=== PATIENT | female | born 1925 | race Caucasian/White ===

== ENCOUNTER 2016-11-18 10:25 | Emergency (ER) | payer OTHER ==
--- NOTE | 2016-11-18 11:44 | ED NURSING NOTES ---
Clinical Report - Nurses [facility] [address] [place] [address] 11/18/2016 10:25 Patient: DEREK NIELSEN TRIAGE Triage time 10:37 Nov 18 2016. Acuity: LEVEL 4. Chief Complaint: TENDER AREA. 10:38 11/18/16. 10:38 11/18/16. Alert (history of dementia). No acute distress. ( Left buttock pain, tender area on inside of left buttock). SEPSIS SCREEN: Sepsis Screen. Negative (no infection suspected/documented). --10:48 Ervin Locke R.N. 10:43 11/18/16. BP: 156/72. HR: 60. RR: 18. O2 saturation: 99% on room air. Temp: 97.6 F (oral). Pain level now: 5/10. --10:48 Ervin Locke R.N. Weight: 80 kg stated. Height/Length: 67 inches Per Patient. BMI: 27.6. --10:43 Ervin Locke R.N. Medications Lasix Oral 20 mg, daily. Lisinopril Oral 40 mg, daily. Magnesium Chloride Oral 64mg, 2 times a day. --10:43 Ervin Locke R.N. ASA Oral. --10:45 Ervin Locke R.N. Multi Vitamin Daily Oral. --10:45 Ervin Locke R.N. Vitamin D Oral. --10:46 Ervin Locke R.N. Medication/allergy information source: the patient and patient's family. --10:48 Ervin Locke R.N. Allergies Levothyroxine Sodium. --10:43 Ervin Locke R.N. History Arrived by private vehicle. Historian: patient. Accompanied by family. Primary physician (OTTO ROSS). 10:38 11/18/16. Reported as located on the right buttock. It is described as painful. 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 PAST MEDICAL HX: Immunizations: status is unknown. SOCIAL HX: Never smoker. No alcohol use or drug use. No infectious disease exposure. ABUSE ASSESSMENT: No report of abuse. FALL RISK ASSESSMENT: Fall risk assessment completed. No fall risk identified. NUTRITIONAL RISK ASSESSMENT: The nutritional risk assessment revealed no deficiencies. FUNCTIONAL ASSESSMENT: Functional assessment: no impairments noted. LEARNING NEEDS ASSESSMENT: The learning needs assessment revealed no barriers. SKIN INTEGRITY ASSESSMENT: Skin integrity risk assessment completed. No skin integrity risk identified. --10:48 Ervin Locke R.N. This started today. --10:48 Ervin Locke R.N. PROBLEMS: Hip Fracture. Hypothyroidism. Dementia. Hematoma. Intracranial Hemorrhage. Immunizations. TIA - Transient Ischemic Attack. Fall. Syncope. Pneumonia. Tetanus Status. Atrial Fibrillation. Forgetfulness. Hypertension. --10:46 Ervin Locke R.N. TIA - Transient Ischemic Attack [RuleOut]. --10:46 Ervin Locke R.N. ADDITIONAL SURGERIES: Cholecystectomy. Ulcer. --10:46 Ervin Locke R.N. Assessment 10:38 11/18/16. --10:48 Ervin Locke R.N. Interventions 10:38 11/18/16. 10:38 11/18/16. ID and allergy band on patient. To treatment room. --10:48 Ervin Locke R.N. PHYSICAL ASSESSMENT 10:38 11/18/16. Ambulatory to room. (with front wheel walker). GENERAL / NEURO / PSYCH: Alert. The patient does not appear to be in acute distress. Oriented X 4. RESPIRATORY: Respirations not labored. CVS: Capillary refill less than 2 seconds. SKIN: Skin is warm and dry. Tenderness on the left buttock. --10:38 Ervin Locke R.N. NURSING PROGRESS NOTES 10:39 11/18/16. The plan of care for this patient has been created. Patient gowned. Head of bed elevated. Reassurance given. Two patient identifiers checked. Call light placed in reach. Side rails up x 2. Bed placed in lowest position. Brakes of bed on. --10:39 Ervin Locke R.N. 10:39 11/18/16. Patient ready for evaluation- chart flagged and notification provided. --10:39 Ervin Locke R.N. 10:56 11/18/2016 Percocet (Oxycodone-Acetaminophen) PO 5/325 mg Tablets 1 tab given. Allergies verified, confirmed 5 rights and sedative warning given to the patient. --10:56 Ervin Locke R.N. 10:56 11/18/2016 Bactrim DS (Sulfamethoxazole-TMP DS) PO 1 tab given. Allergies verified and confirmed 5 rights. --10:56 Ervin Locke R.N. 10:56 11/18/2016 Keflex (Cephalexin) PO 500 mg given. Allergies verified and confirmed 5 rights. --10:56 Ervin Locke R.N. 10:56 11/18/2016 Lidocaine-Epinephrine (Lidocaine-Epinephrine) Injection 1 % given. Allergies verified and confirmed 5 rights. (administered by ). --10:56 Ervin Locke R.N. 11:11/18/2016 OFRBAXW-UGHSGN-OJRZK PERTUSSIS IM 0.5 mL given. (Lot#: [id number], expiration date: 10/21/2018, Client Service Coordinator: sanofi pasteur). Given in the right deltoid. Allergies verified and confirmed 5 rights. Vaccine information statement provided to the patient. --11:01 Ervin Locke R.N. 11:25 11/18/16. ( Provider at bedside with mba intern to I and D abscess). --11:25 Ervin Locke R.N. late entry -11:40. I & D: Incision and Drainage of abscess performed by ED physician. Assisted by two nurses. Preparation: with 1% lidocaine with epi. Post-procedure: she was stable. Total time of assist / procedure: 15 minutes. ( Dressing applied). --11:56 Ervin Locke R.N. DISPOSITION / DISCHARGE 11:55 11/18/16. Condition at departure: improved. The goals identified in the patient's plan of care were met. No learning barriers present. Discharge instructions provided and reviewed with the patient and family. Reviewed warnings. Reviewed medication(s). Treatments reviewed. Patient and family verbalized understanding. Written instructions provided in Cypriot. The patient was discharged by the physician. She was discharged home and accompanied by family. She left the Emergency Department ambulatory, via private vehicle and (Front Wheel walker). Family member driving. FALL RISK ASSESSMENT: Fall risk assessment completed. No fall risk identified. --11:55 Ervin Locke R.N. 11:54 11/18/16. BP: 178/55. HR: 73. RR: 14. O2 saturation: 99% on room air. Temp: 98.1 F (oral). --11:55 Ervin Locke R.N. 11:56 11/18/16. Departure time: 11:56 Nov 18 2016. ( Family aware to follow up with PCP in 2 days for wound check). --11:56 Ervin Locke R.N. Locked/Released at 11/18/2016 12:42 by Ervin Locke R.N.
--- NOTE | 2016-11-18 11:44 | ED ORDER SUMMARY ---
..... Patient: DEREK NIELSEN OrderSheet [facility] VisitID: [id number] [place] [address] 89y, F Registration Date/Time: 11/18/2016 ORDER SHEET Weight: 80 kg (stated) Allergies: Levothyroxine Sodium GENERAL ORDERS: I&D Tray (10:49 11/18/2016 Arash Arnold) (10:53 PWeiler ER Tech1) MEDICATION ORDERS: Lidocaine-Epinephrine Injection 1% (place at bedside, with syringes & needles) (10:48 11/18/2016 Arash Arnold) (Ack 10:49 JBoardley R.N.) (10:56 JBoardley R.N.) Percocet PO 5/325 mg (HIGH ALERT MEDICATION, NOW) (10:48 11/18/2016 Arash Arnold) (Ack 10:49 JBoardley R.N.) (10:56 JBoardley R.N.) Bactrim DS PO (Tablet 800-160 mg) 1 tab (NOW) (10:49 11/18/2016 Arash Arnold) (Ack 10:49 JBoardley R.N.) (10:56 JBoardley R.N.) Keflex PO 500 mg (NOW) (10:49 11/18/2016 Arash Arnold) (Ack 10:49 JBoardley R.N.) (10:56 JBoardley R.N.) Hgldjdo-Qxporv-Vvmyz Pertussis IM 0.5 mL (NOW, per protocol) (10:52 11/18/2016 Arash Arnold) (Ack 10:54 JBoardley R.N.) (11:01 JBoardley R.N.) IV FLUIDS: ORDER SHEET NOTES: [Electronically signed by Ervin Locke R.N. (12:42 11/18/2016)] [Electronically signed by Todd Archer Dr. (04:46 11/20/2016)] [Electronically locked/signed by Ervin Locke R.N. (12:42 11/18/2016)]
--- NOTE | 2016-11-18 11:44 | ED CLINICAL REPORT ---
Clinical Report - Physicians/Mid Levels [facility] [address] [place] [address] 11/18/2016 10:25 Patient: DEREK NIELSEN Time Seen: 1029; initial patient contact. Arrived- By private vehicle. Historian- patient and family. HISTORY OF PRESENT ILLNESS Chief Complaint: BOIL. This started maybe a few days but not sure. patient with dementia. and is still present and worsening. It was gradual in onset and has been constant but is not gone now. It is described as painful. Cause has been identified (abscess). Similar symptoms previously: None. Recent medical care: Not recently seen/assessed. REVIEW OF SYSTEMS No fever, chills, difficulty breathing, chest pain or nausea. No vomiting. All systems otherwise negative, except as recorded above. PAST HISTORY See nurses notes. Tetanus immunization status is unknown. Medications: Vitamin D Oral. Multi Vitamin Daily Oral. ASA Oral. Lasix Oral 20 mg, daily. Lisinopril Oral 40 mg, daily. Magnesium Chloride Oral 64mg, 2 times a day. Allergies: Levothyroxine Sodium. SOCIAL HISTORY Never smoker. No alcohol use or drug use. No recent travel. Is a local resident. ADDITIONAL NOTES The nursing notes have been reviewed. PHYSICAL EXAM Vital Signs: 11/18/2016 10:43 BP: 156/72. HR: 60. RR: 18. O2 saturation: 99%. Temp: 97.6 F. Pain level now: 5/10. Oxygen saturation normal. Appearance: Alert. Oriented X3. No acute distress. Eyes: Pupils equal, round and reactive to light. Conjunctivae and eyelids normal. ENT: Ears normal. Nose normal. Pharynx normal. CVS: Normal heart rate and rhythm. Heart sounds normal. Respiratory: No respiratory distress. Breath sounds normal. Chest nontender. Abdomen: Nontender. No organomegaly. Skin: (abscess 3 x 4 cm with small surrounding erythema. no crepitus. no signs of fornier's. no masses. external hemorrhoids. no other signs of infection.). Neuro: Oriented X 3. No motor deficit. No sensory deficit. PROGRESS AND PROCEDURES Incision & Drainage of Abscess: The risks of the procedure, benefits and alternatives were explained. Anesthesia provided using 1% lidocaine with epi. Skin cleansed with Betadine. The abscess was incised with a #10 surgical blade. A moderate amount of pus was drained. Cavity was irrigated with saline and packed with gauze. Estimated blood loss: 3 mL. ( patient tolerated well. no complications.). Course of Care: jacquelyn is a pleasant 89-year-old female presenting for evaluation of abscess to the buttocks. No signs of foreign's gangrene. Informed verbal consent obtained for procedure of incision and drainage. Patient tolerated procedure well. Improved symptoms after procedure was performed. No competitions. No systemic symptoms. Discussed with patient work up, diagnosis, home care, follow up, and return precautions. All questions answered. patient expressed understanding of these instructions and was agreeable to them. Disposition: Discharged. Condition: good. CLINICAL IMPRESSION Single deep abscess with incision and drainage (left buttocks). Cellulitis (left buttocks). INSTRUCTIONS Warnings: GENERAL WARNINGS: Return or contact your physician immediately if your condition worsens or changes unexpectedly, if not improving as expected, or if other problems arise. Specifically return if pain, vomiting, bleeding, breathing difficulty or fever. Your Current Medications: CONTINUE TAKING THE FOLLOWING MEDICATIONS: ASA Oral. Lasix Oral : 20 mg daily. Lisinopril Oral : 40 mg daily. Magnesium Chloride Oral : 64mg 2 times a day. Multi Vitamin Daily Oral. Vitamin D Oral. Prescription Medications: Bactrim DS 800 mg / 160 mg: take 1 tablet orally every 12 hours for 10 days. Substitution is permissible. (Disp 20 tabs) Keflex 500 mg: take 1 capsule orally every 8 hours for 10 days. No refill. Substitution is permissible. (disp 30 caps) Percocet 5 mg/325 mg: take 1 tablet orally every 6 hours as needed for pain. Dispense ten (10). No refill. Substitution is permissible. Follow-up: Return to the emergency department as needed. Follow up with your doctor in two days. Reason for referral: recheck today's concerns. Summary of care provided to patient and family via paper. Screening today revealed the patient's blood pressure to be in the hypertensive range. Blood pressure screening was not performed during this visit because the patient has an active diagnosis of hypertension. The patient should follow up with a primary care provider for blood pressure management. Understanding of the discharge instructions verbalized by patient. (Electronically signed by Todd Archer Dr. 11/20/2016 4:46)
--- NOTE | 2016-11-18 11:44 | ED ORDER SUMMARY ---
..... Patient: DEREK NIELSEN OrderSheet [facility] VisitID: [id number] [place] [address] 89y, F Registration Date/Time: 11/18/2016 ORDER SHEET Weight: 80 kg (stated) Allergies: Levothyroxine Sodium GENERAL ORDERS: I&D Tray (10:49 11/18/2016 Arash Arnold) (10:53 PWeiler ER Tech1) MEDICATION ORDERS: Lidocaine-Epinephrine Injection 1% (place at bedside, with syringes & needles) (10:48 11/18/2016 Arash Arnold) (Ack 10:49 JBoardley R.N.) (10:56 JBoardley R.N.) Percocet PO 5/325 mg (HIGH ALERT MEDICATION, NOW) (10:48 11/18/2016 Arash Arnold) (Ack 10:49 JBoardley R.N.) (10:56 JBoardley R.N.) Bactrim DS PO (Tablet 800-160 mg) 1 tab (NOW) (10:49 11/18/2016 Arash Arnold) (Ack 10:49 JBoardley R.N.) (10:56 JBoardley R.N.) Keflex PO 500 mg (NOW) (10:49 11/18/2016 Arash Arnold) (Ack 10:49 JBoardley R.N.) (10:56 JBoardley R.N.) Hhmuqrm-Ozlcvs-Kvzeu Pertussis IM 0.5 mL (NOW, per protocol) (10:52 11/18/2016 Arash Arnold) (Ack 10:54 JBoardley R.N.) (11:01 JBoardley R.N.) IV FLUIDS: ORDER SHEET NOTES: [Electronically signed by Ervin Locke R.N. (12:42 11/18/2016)] [Electronically signed by Todd Archer Dr. (04:46 11/20/2016)] [Electronically locked/signed by Ervin Locke R.N. (12:42 11/18/2016)]
--- NOTE | 2016-11-18 11:44 | ED NURSING NOTES ---
Clinical Report - Nurses [facility] [address] [place] [address] 11/18/2016 10:25 Patient: DEREK NIELSEN TRIAGE Triage time 10:37 Nov 18 2016. Acuity: LEVEL 4. Chief Complaint: TENDER AREA. 10:38 11/18/16. 10:38 11/18/16. Alert (history of dementia). No acute distress. ( Left buttock pain, tender area on inside of left buttock). SEPSIS SCREEN: Sepsis Screen. Negative (no infection suspected/documented). --10:48 Ervin Locke R.N. 10:43 11/18/16. BP: 156/72. HR: 60. RR: 18. O2 saturation: 99% on room air. Temp: 97.6 F (oral). Pain level now: 5/10. --10:48 Ervin Locke R.N. Weight: 80 kg stated. Height/Length: 67 inches Per Patient. BMI: 27.6. --10:43 Ervin Locke R.N. Medications Lasix Oral 20 mg, daily. Lisinopril Oral 40 mg, daily. Magnesium Chloride Oral 64mg, 2 times a day. --10:43 Ervin Locke R.N. ASA Oral. --10:45 Ervin Locke R.N. Multi Vitamin Daily Oral. --10:45 Ervin Locke R.N. Vitamin D Oral. --10:46 Ervin Locke R.N. Medication/allergy information source: the patient and patient's family. --10:48 Ervin Locke R.N. Allergies Levothyroxine Sodium. --10:43 Ervin Locke R.N. History Arrived by private vehicle. Historian: patient. Accompanied by family. Primary physician (OTTO ROSS). 10:38 11/18/16. Reported as located on the right buttock. It is described as painful. 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 PAST MEDICAL HX: Immunizations: status is unknown. SOCIAL HX: Never smoker. No alcohol use or drug use. No infectious disease exposure. ABUSE ASSESSMENT: No report of abuse. FALL RISK ASSESSMENT: Fall risk assessment completed. No fall risk identified. NUTRITIONAL RISK ASSESSMENT: The nutritional risk assessment revealed no deficiencies. FUNCTIONAL ASSESSMENT: Functional assessment: no impairments noted. LEARNING NEEDS ASSESSMENT: The learning needs assessment revealed no barriers. SKIN INTEGRITY ASSESSMENT: Skin integrity risk assessment completed. No skin integrity risk identified. --10:48 Ervin Locke R.N. This started today. --10:48 Ervin Locke R.N. PROBLEMS: Hip Fracture. Hypothyroidism. Dementia. Hematoma. Intracranial Hemorrhage. Immunizations. TIA - Transient Ischemic Attack. Fall. Syncope. Pneumonia. Tetanus Status. Atrial Fibrillation. Forgetfulness. Hypertension. --10:46 Ervin Locke R.N. TIA - Transient Ischemic Attack [RuleOut]. --10:46 Ervin Locke R.N. ADDITIONAL SURGERIES: Cholecystectomy. Ulcer. --10:46 Ervin Locke R.N. Assessment 10:38 11/18/16. --10:48 Ervin Locke R.N. Interventions 10:38 11/18/16. 10:38 11/18/16. ID and allergy band on patient. To treatment room. --10:48 Ervin Locke R.N. PHYSICAL ASSESSMENT 10:38 11/18/16. Ambulatory to room. (with front wheel walker). GENERAL / NEURO / PSYCH: Alert. The patient does not appear to be in acute distress. Oriented X 4. RESPIRATORY: Respirations not labored. CVS: Capillary refill less than 2 seconds. SKIN: Skin is warm and dry. Tenderness on the left buttock. --10:38 Ervin Locke R.N. NURSING PROGRESS NOTES 10:39 11/18/16. The plan of care for this patient has been created. Patient gowned. Head of bed elevated. Reassurance given. Two patient identifiers checked. Call light placed in reach. Side rails up x 2. Bed placed in lowest position. Brakes of bed on. --10:39 Ervin Locke R.N. 10:39 11/18/16. Patient ready for evaluation- chart flagged and notification provided. --10:39 Ervin Locke R.N. 10:56 11/18/2016 Percocet (Oxycodone-Acetaminophen) PO 5/325 mg Tablets 1 tab given. Allergies verified, confirmed 5 rights and sedative warning given to the patient. --10:56 Ervin Locke R.N. 10:56 11/18/2016 Bactrim DS (Sulfamethoxazole-TMP DS) PO 1 tab given. Allergies verified and confirmed 5 rights. --10:56 Ervin Locke R.N. 10:56 11/18/2016 Keflex (Cephalexin) PO 500 mg given. Allergies verified and confirmed 5 rights. --10:56 Ervin Locke R.N. 10:56 11/18/2016 Lidocaine-Epinephrine (Lidocaine-Epinephrine) Injection 1 % given. Allergies verified and confirmed 5 rights. (administered by ). --10:56 Ervin Locke R.N. 11:11/18/2016 AOBUHBM-DOWSXZ-USHMM PERTUSSIS IM 0.5 mL given. (Lot#: [id number], expiration date: 10/21/2018, Rail Washer: sanofi pasteur). Given in the right deltoid. Allergies verified and confirmed 5 rights. Vaccine information statement provided to the patient. --11:01 Ervin Locke R.N. 11:25 11/18/16. ( Provider at bedside with apparel merchandiser to I and D abscess). --11:25 Ervin Locke R.N. late entry -11:40. I & D: Incision and Drainage of abscess performed by ED physician. Assisted by two nurses. Preparation: with 1% lidocaine with epi. Post-procedure: she was stable. Total time of assist / procedure: 15 minutes. ( Dressing applied). --11:56 Ervin Locke R.N. DISPOSITION / DISCHARGE 11:55 11/18/16. Condition at departure: improved. The goals identified in the patient's plan of care were met. No learning barriers present. Discharge instructions provided and reviewed with the patient and family. Reviewed warnings. Reviewed medication(s). Treatments reviewed. Patient and family verbalized understanding. Written instructions provided in Tongan. The patient was discharged by the physician. She was discharged home and accompanied by family. She left the Emergency Department ambulatory, via private vehicle and (Front Wheel walker). Family member driving. FALL RISK ASSESSMENT: Fall risk assessment completed. No fall risk identified. --11:55 Ervin Locke R.N. 11:54 11/18/16. BP: 178/55. HR: 73. RR: 14. O2 saturation: 99% on room air. Temp: 98.1 F (oral). --11:55 Ervin Locke R.N. 11:56 11/18/16. Departure time: 11:56 Nov 18 2016. ( Family aware to follow up with PCP in 2 days for wound check). --11:56 Ervin Locke R.N. Locked/Released at 11/18/2016 12:42 by Ervin Locke R.N.
--- NOTE | 2016-11-20 04:47 | ED MAR SUMMARY ---
..... Medication Administration Record [facility] [address] [place] [address] Patient: DEREK NIELSEN Visit ID: [id number] 89y, F Weight: 80.0 kg Height/Length: 67 in BMI: 27.6 ALLERGIES: Levothyroxine Sodium Given 10:11/18/2016 Ervin Locke R.N. Medication Administered: LIDOCAINE-EPINEPHRINE [INJECTION] (LIDOCAINE-EPINEPHRINE), Dose: 1 % Injection. Medication Ordered: Lidocaine-Epinephrine Injection 1% (place at bedside, with syringes & needles). Given :11/18/2016 Ervin Locke R.N. Medication Administered: PERCOCET [PO] (OXYCODONE-ACETAMINOPHEN), Dose: 1 tab 5/325 mg Tablets PO. Medication Ordered: Percocet PO 5/325 mg (HIGH ALERT MEDICATION, NOW). Given :11/18/2016 Ervin Locke R.N. Medication Administered: BACTRIM DS [PO] (SULFAMETHOXAZOLE-TMP DS), Dose: 1 tab PO. Medication Ordered: Bactrim DS PO (Tablet 800-160 mg) 1 tab (NOW). Given :11/18/2016 Ervin Locke R.N. Medication Administered: KEFLEX [PO] (CEPHALEXIN), Dose: 500 mg PO. Medication Ordered: Keflex PO 500 mg (NOW). Given 11:11/18/2016 Ervin Locke R.N. Medication Administered: NTZFWHI-LEGFDW-GABWG PERTUSSIS [IM], Dose: 0.5 mL IM. Medication Ordered: Msjqfoe-Juzvbf-Kyghg Pertussis IM 0.5 mL (NOW, per protocol).
--- NOTE | 2016-11-20 04:47 | ED MED RECONCILIATION SUMMARY ---
Patient: DEREK NIELSEN Medication Reconciliation Report [facility] VisitID: [id number] [place] [address] 89y, F Registration Date/Time: 11/18/2016 Weight: 80 kg Height/Length: 67 in. BMI: 27.6 ALLERGIES: Levothyroxine Sodium The patient's Home Medications are listed below: CONTINUE TAKING THE FOLLOWING MEDICATIONS: ASA Oral Lasix Oral 20 mg, daily Lisinopril Oral 40 mg, daily Magnesium Chloride Oral 64mg, 2 times a day Multi Vitamin Daily Oral Vitamin D Oral The source(s) of the original Home Medication information: patient patient's family member The following Medications were given to the patient in the Emergency Department: Percocet [PO] PO 1 tab, administered: 11/18/2016 10:56:00 AM Bactrim DS [PO] PO 1 tab, administered: 11/18/2016 10:56:00 AM Keflex [PO] PO 500 mg, administered: 11/18/2016 10:56:00 AM Lidocaine-Epinephrine [Injection] Injection 1 %, administered: 11/18/2016 10:56:00 AM VAPXVAN-VPJSSZ-OYTEF PERTUSSIS [IM] IM 0.5 mL, administered: 11/18/2016 11:01:00 AM The following Medications were prescribed to the patient: Bactrim DS 800 mg / 160 mg: take 1 tablet orally every 12 hours for 10 days. Substitution is permissible.(Disp 20 tabs) -- Todd Archer Dr. Keflex 500 mg: take 1 capsule orally every 8 hours for 10 days. No refill. Substitution is permissible.(disp 30 caps) -- Todd Archer Dr. Percocet 5 mg/325 mg: take 1 tablet orally every 6 hours as needed for pain. Dispense ten (10). No refill. Substitution is permissible. -- Todd Archer Dr.
--- NOTE | 2016-11-20 04:47 | ED MED RECONCILIATION SUMMARY ---
Patient: DEREK NIELSEN Medication Reconciliation Report [facility] VisitID: [id number] [place] [address] 89y, F Registration Date/Time: 11/18/2016 Weight: 80 kg Height/Length: 67 in. BMI: 27.6 ALLERGIES: Levothyroxine Sodium The patient's Home Medications are listed below: CONTINUE TAKING THE FOLLOWING MEDICATIONS: ASA Oral Lasix Oral 20 mg, daily Lisinopril Oral 40 mg, daily Magnesium Chloride Oral 64mg, 2 times a day Multi Vitamin Daily Oral Vitamin D Oral The source(s) of the original Home Medication information: patient patient's family member The following Medications were given to the patient in the Emergency Department: Percocet [PO] PO 1 tab, administered: 11/18/2016 10:56:00 AM Bactrim DS [PO] PO 1 tab, administered: 11/18/2016 10:56:00 AM Keflex [PO] PO 500 mg, administered: 11/18/2016 10:56:00 AM Lidocaine-Epinephrine [Injection] Injection 1 %, administered: 11/18/2016 10:56:00 AM PGIFJBY-GQHICG-ZKJIE PERTUSSIS [IM] IM 0.5 mL, administered: 11/18/2016 11:01:00 AM The following Medications were prescribed to the patient: Bactrim DS 800 mg / 160 mg: take 1 tablet orally every 12 hours for 10 days. Substitution is permissible.(Disp 20 tabs) -- Todd Archer Dr. Keflex 500 mg: take 1 capsule orally every 8 hours for 10 days. No refill. Substitution is permissible.(disp 30 caps) -- Todd Archer Dr. Percocet 5 mg/325 mg: take 1 tablet orally every 6 hours as needed for pain. Dispense ten (10). No refill. Substitution is permissible. -- Todd Archer Dr.
--- NOTE | 2016-11-20 04:47 | ED DISCHARGE INSTRUCTIONS ---
Patient: DEREK NIELSEN General Instructions [facility] VisitID: [id number] [place] [address] 89y, F Registration Date/Time: 11/18/2016 Single deep abscess with incision and drainage (left buttocks). Cellulitis (left buttocks). INSTRUCTIONS Warnings: GENERAL WARNINGS: Return or contact your physician immediately if your condition worsens or changes unexpectedly, if not improving as expected, or if other problems arise. Specifically return if pain, vomiting, bleeding, breathing difficulty or fever. Your Current Medications: CONTINUE TAKING THE FOLLOWING MEDICATIONS: ASA Oral. Lasix Oral : 20 mg daily. Lisinopril Oral : 40 mg daily. Magnesium Chloride Oral : 64mg 2 times a day. Multi Vitamin Daily Oral. Vitamin D Oral. Prescription Medications: Bactrim DS 800 mg / 160 mg: take 1 tablet orally every 12 hours for 10 days. Substitution is permissible. (Disp 20 tabs) Keflex 500 mg: take 1 capsule orally every 8 hours for 10 days. No refill. Substitution is permissible. (disp 30 caps) Percocet 5 mg/325 mg: take 1 tablet orally every 6 hours as needed for pain. Dispense ten (10). No refill. Substitution is permissible. Follow-up: Return to the emergency department as needed. Follow up with your doctor in two days. Reason for referral: recheck today's concerns. Summary of care provided to patient and family via paper. Screening today revealed the patient's blood pressure to be in the hypertensive range. Blood pressure screening was not performed during this visit because the patient has an active diagnosis of hypertension. The patient should follow up with a primary care provider for blood pressure management. Understanding of the discharge instructions verbalized by patient. ADDITIONAL INFORMATION Abscess [Incision & Drainage] An abscess (sometimes called a boil) occurs when bacteria get trapped under the skin and begin to grow. Pus forms inside the abscess as the body responds to the bacteria. An abscess can occur with an insect bite, ingrown hair, blocked oil gland, pimple, cyst, or puncture wound. Treatment of your abscess has required an incision to drain the pus. If the abscess pocket was large, a gauze packing may have been inserted. This will need to be removed and possibly replaced on your next visit. Antibiotics are not required in the treatment of a simple abscess, unless the infection is spreading into the skin around the wound (known as cellulitis). Healing of the wound will take about one to two weeks depending on the size of the abscess. Healthy tissue will grow from the bottom and sides of the opening until it seals over. Home Care: The wound may drain for the first two days. Cover the wound with a clean dry dressing. If the dressing becomes soaked with blood or pus, change it. If a gauze packing was placed inside the abscess cavity, you may be advised to remove it yourself. You may do this in the shower. Once the packing is removed, you should wash the area in the shower or bath 3 to 4 times a day, until the skin opening has closed. If you were prescribed antibiotics, take them as directed until they are all gone. You may use acetaminophen (Tylenol) or ibuprofen (Motrin, Advil) to control pain, unless another pain medicine was prescribed. [ NOTE: If you have liver disease or ever had a stomach ulcer, talk with your doctor before using these medicines.] Follow Up with your doctor as advised by our staff. If a gauze packing was inserted in your wound, it should be removed in 1-2 days. Check your wound every day for the signs of worsening infection listed below. Get Prompt Medical Attention if any of the following occur: Increasing redness or swelling Red streaks in the skin leading away from the wound Increasing local pain or swelling Continued pus draining from the wound two days after treatment Fever of 100.4F (38C) or higher, or as directed by your healthcare provider Sulfamethoxazole, Trimethoprim Oral tablet What is this medicine? SULFAMETHOXAZOLE; TRIMETHOPRIM or SMX-TMP (suhl fuh meth OK penelope zohl; trye METH oh prim) is a combination of a sulfonamide antibiotic and a second antibiotic, trimethoprim. It is used to treat or prevent certain kinds of bacterial infections. It will not work for colds, flu, or other viral infections. How should I use this medicine? Take this medicine by mouth with a full glass of water. Follow the directions on the prescription label. Take your medicine at regular intervals. Do not take it more often than directed. Do not skip doses or stop your medicine early. Talk to your avionics system engineer regarding the use of this medicine in children. Special care may be needed. This medicine has been used in children as young as 2 months of age. What side effects may I notice from receiving this medicine? Side effects that you should report to your doctor or health health careers instructor as soon as possible: allergic reactions like skin rash or hives, swelling of the face, lips, or tongue breathing problems fever or chills, sore throat irregular heartbeat, chest pain joint or muscle pain pain or difficulty passing urine red pinpoint spots on skin redness, blistering, peeling or loosening of the skin, including inside the mouth unusual bleeding or bruising unusually weak or tired yellowing of the eyes or skin Side effects that usually do not require medical attention (report to your doctor or health health careers instructor if they continue or are bothersome): diarrhea dizziness headache loss of appetite nausea, vomiting nervousness What may interact with this medicine? Do not take this medicine with any of the following medications: aminobenzoate potassium dofetilide metronidazole This medicine may also interact with the following medications: GALLO inhibitors like benazepril, enalapril, lisinopril, and ramipril cyclosporine digoxin diuretics indomethacin medicines for diabetes methenamine methotrexate phenytoin potassium supplements pyrimethamine sulfinpyrazone tricyclic antidepressants warfarin What if I miss a dose? If you miss a dose, take it as soon as you can. If it is almost time for your next dose, take only that dose. Do not take double or extra doses. Where should I keep my medicine? Keep out of the reach of children. Store at room temperature between 20 to 25 degrees C (68 to 77 degrees F). Protect from light. Throw away any unused medicine after the expiration date. What should I tell my health care provider before I take this medicine? They need to know if you have any of these conditions: anemia asthma being treated with anticonvulsants if you frequently drink alcohol containing drinks kidney disease liver disease low level of folic acid or [id number] dehydrogenase poor nutrition or malabsorption porphyria severe allergies thyroid disorder an unusual or allergic reaction to sulfamethoxazole, trimethoprim, sulfa drugs, other medicines, foods, dyes, or preservatives or trying to get breast-feeding What should I watch for while using this medicine? Tell your doctor or health health careers instructor if your symptoms do not improve. Drink several glasses of water a day to reduce the risk of kidney problems. Do not treat diarrhea with over the counter products. Contact your doctor if you have diarrhea that lasts more than 2 days or if it is severe and watery. This medicine can make you more sensitive to the sun. Keep out of the sun. If you cannot avoid being in the sun, wear protective clothing and use a sunscreen. Do not use sun lamps or tanning beds/booths. Cephalexin Monohydrate Oral tablet What is this medicine? CEPHALEXIN (sef a MARIA E in) is a cephalosporin antibiotic. It is used to treat certain kinds of bacterial infections It will not work for colds, flu, or other viral infections. How should I use this medicine? Take this medicine by mouth with a full glass of water. Follow the directions on the prescription label. This medicine can be taken with or without food. Take your medicine at regular intervals. Do not take your medicine more often than directed. Take all of your medicine as directed even if you think you are better. Do not skip doses or stop your medicine early. Talk to your avionics system engineer regarding the use of this medicine in children. While this drug may be prescribed for selected conditions, precautions do apply. What side effects may I notice from receiving this medicine? Side effects that you should report to your doctor or health health careers instructor as soon as possible: allergic reactions like skin rash, itching or hives, swelling of the face, lips, or tongue breathing problems pain or trouble passing urine redness, blistering, peeling or loosening of the skin, including inside the mouth severe or watery diarrhea unusually weak or tired yellowing of the eyes, skin Side effects that usually do not require medical attention (report to your doctor or health health careers instructor if they continue or are bothersome): gas or heartburn genital or anal irritation headache joint or muscle pain nausea, vomiting What may interact with this medicine? probenecid some other antibiotics What if I miss a dose? If you miss a dose, take it as soon as you can. If it is almost time for your next dose, take only that dose. Do not take double or extra doses. There should be at least 4 to 6 hours between doses. Where should I keep my medicine? Keep out of the reach of children. Store at room temperature between 59 and 86 degrees F (15 and 30 degrees C). Throw away any unused medicine after the expiration date. What should I tell my health care provider before I take this medicine? They need to know if you have any of these conditions: kidney disease stomach or intestine problems, especially colitis an unusual or allergic reaction to cephalexin, other cephalosporins, penicillins, other antibiotics, medicines, foods, dyes or preservatives or trying to get breast-feeding What should I watch for while using this medicine? Tell your doctor or health health careers instructor if your symptoms do not begin to improve in a few days. Do not treat diarrhea with over the counter products. Contact your doctor if you have diarrhea that lasts more than 2 days or if it is severe and watery. If you have diabetes, you may get a false-positive result for sugar in your urine. Check with your doctor or health health careers instructor. Oxycodone Hydrochloride, Acetaminophen Oral tablet What is this medicine? ACETAMINOPHEN; OXYCODONE (a set a GEO adi fen; ox i KOE done) is a pain reliever. It is used to treat mild to moderate pain. How should I use this medicine? Take this medicine by mouth with a full glass of water. Follow the directions on the prescription label. Take your medicine at regular intervals. Do not take your medicine more often than directed. Talk to your avionics system engineer regarding the use of this medicine in children. Special care may be needed. Patients over 65 years old may have a stronger reaction and need a smaller dose. What side effects may I notice from receiving this medicine? Side effects that you should report to your doctor or health health careers instructor as soon as possible: allergic reactions like skin rash, itching or hives, swelling of the face, lips, or tongue breathing difficulties, wheezing confusion light headedness or fainting spells severe stomach pain yellowing of the skin or the whites of the eyes Side effects that usually do not require medical attention (report to your doctor or health health careers instructor if they continue or are bothersome): dizziness drowsiness nausea vomiting What may interact with this medicine? alcohol antihistamines barbiturates like amobarbital, butalbital, butabarbital, methohexital, pentobarbital, phenobarbital, thiopental, and secobarbital benztropine drugs for bladder problems like solifenacin, trospium, oxybutynin, tolterodine, hyoscyamine, and methscopolamine drugs for breathing problems like ipratropium and tiotropium drugs for certain stomach or intestine problems like propantheline, homatropine methylbromide, glycopyrrolate, atropine, belladonna, and dicyclomine general anesthetics like etomidate, ketamine, nitrous oxide, propofol, desflurane, enflurane, halothane, isoflurane, and sevoflurane medicines for depression, anxiety, or psychotic disturbances medicines for sleep muscle relaxants naltrexone narcotic medicines (opiates) for pain phenothiazines like perphenazine, thioridazine, chlorpromazine, mesoridazine, fluphenazine, prochlorperazine, promazine, and trifluoperazine scopolamine tramadol trihexyphenidyl What if I miss a dose? If you miss a dose, take it as soon as you can. If it is almost time for your next dose, take only that dose. Do not take double or extra doses. Where should I keep my medicine? Keep out of the reach of children. This medicine can be abused. Keep your medicine in a safe place to protect it from theft. Do not share this medicine with anyone. Selling or giving away this medicine is dangerous and against the law. Store at room temperature between 20 and 25 degrees C (68 and 77 degrees F). Keep container tightly closed. Protect from light. This medicine may cause accidental overdose and if it is taken by other adults, children, or pets. Flush any unused medicine down the toilet to reduce the chance of harm. Do not use the medicine after the expiration date. What should I tell my health care provider before I take this medicine? They need to know if you have any of these conditions: brain tumor Crohn's disease, inflammatory bowel disease, or ulcerative colitis drink more than 3 alcohol containing drinks per day drug abuse or addiction head injury heart or circulation problems kidney disease or problems going to the bathroom liver disease lung disease, asthma, or breathing problems an unusual or allergic reaction to acetaminophen, oxycodone, other opioid analgesics, other medicines, foods, dyes, or preservatives or trying to get breast-feeding What should I watch for while using this medicine? Tell your doctor or health health careers instructor if your pain does not go away, if it gets worse, or if you have new or a different type of pain. You may develop tolerance to the medicine. Tolerance means that you will need a higher dose of the medication for pain relief. Tolerance is normal and is expected if you take this medicine for a long time. Do not suddenly stop taking your medicine because you may develop a severe reaction. Your body becomes used to the medicine. This does NOT mean you are addicted. Addiction is a behavior related to getting and using a drug for a non-medical reason. If you have pain, you have a medical reason to take pain medicine. Your doctor will tell you how much medicine to take. If your doctor wants you to stop the medicine, the dose will be slowly lowered over time to avoid any side effects. You may get drowsy or dizzy. Do not drive, use machinery, or do anything that needs mental alertness until you know how this medicine affects you. Do not stand or sit up quickly, especially if you are an older patient. This reduces the risk of dizzy or fainting spells. Alcohol may interfere with the effect of this medicine. Avoid alcoholic drinks. There are different types of narcotic medicines (opiates) for pain. If you take more than one type at the same time, you may have more side effects. Give your health care provider a list of all medicines you use. Your doctor will tell you how much medicine to take. Do not take more medicine than directed. Call emergency for help if you have problems breathing. The medicine will cause constipation. Try to have a bowel movement at least every 2 to 3 days. If you do not have a bowel movement for 3 days, call your doctor or health health careers instructor. Do not take Tylenol (acetaminophen) or medicines that have acetaminophen with this medicine. Too much acetaminophen can be very dangerous. Many nonprescription medicines contain acetaminophen. Always read the labels carefully to avoid taking more acetaminophen. You have been given the following additional information: Abscess, Incision And Drainage Sulfamethoxazole, Trimethoprim Oral tablet Cephalexin Monohydrate Oral tablet Oxycodone Hydrochloride, Acetaminophen Oral tablet (Electronically signed by Todd Archer Dr. 11/20/2016 4:46)
--- NOTE | 2016-11-20 04:47 | ED MAR SUMMARY ---
..... Medication Administration Record [facility] [address] [place] [address] Patient: DEREK NIELSEN Visit ID: [id number] 89y, F Weight: 80.0 kg Height/Length: 67 in BMI: 27.6 ALLERGIES: Levothyroxine Sodium Given 10:11/18/2016 Ervin Locke R.N. Medication Administered: LIDOCAINE-EPINEPHRINE [INJECTION] (LIDOCAINE-EPINEPHRINE), Dose: 1 % Injection. Medication Ordered: Lidocaine-Epinephrine Injection 1% (place at bedside, with syringes & needles). Given :11/18/2016 Ervin Locke R.N. Medication Administered: PERCOCET [PO] (OXYCODONE-ACETAMINOPHEN), Dose: 1 tab 5/325 mg Tablets PO. Medication Ordered: Percocet PO 5/325 mg (HIGH ALERT MEDICATION, NOW). Given :11/18/2016 Ervin Locke R.N. Medication Administered: BACTRIM DS [PO] (SULFAMETHOXAZOLE-TMP DS), Dose: 1 tab PO. Medication Ordered: Bactrim DS PO (Tablet 800-160 mg) 1 tab (NOW). Given :11/18/2016 Ervin Locke R.N. Medication Administered: KEFLEX [PO] (CEPHALEXIN), Dose: 500 mg PO. Medication Ordered: Keflex PO 500 mg (NOW). Given 11:11/18/2016 Ervin Locke R.N. Medication Administered: [id number] PERTUSSIS [IM], Dose: 0.5 mL IM. Medication Ordered: Wzibtdh-[id number]-Cliun Pertussis IM 0.5 mL (NOW, per protocol).
== END 2016-11-18 11:56 | disposition home or self-care (01) ==
LOC: ED SRH 10:25
DX: L02.31 Cutaneous abscess of buttock (principal); L03.317 Cellulitis of buttock; Z79.899 Other long term (current) drug therapy; Z79.82 Long term (current) use of aspirin; Z88.8 Allergy status to other drugs, medicaments and biological substances; Z23 Encounter for immunization